=== PATIENT | male | born 1965 | race Caucasian/White ===

== ENCOUNTER 2023-04-24 14:51 | Outpatient (CLI) | payer BC | END 2023-04-24 14:52 | disposition home or self-care (01) | LOC: CSHMRI 14:51 | PROVIDERS: ATTEND Neurological Surgery | DX: M47.22 Other spondylosis with radiculopathy, cervical region (principal); M25.78 Osteophyte, vertebrae | CPT/HCPCS: 72141 ==

== ENCOUNTER 2023-11-06 10:57 | Outpatient (CLI) | payer BC | END 2023-11-06 10:58 | disposition home or self-care (01) | LOC: CSHRAD 10:57 | PROVIDERS: ATTEND Neurological Surgery | DX: M54.12 Radiculopathy, cervical region (principal); M47.812 Spondylosis without myelopathy or radiculopathy, cervical region; Z98.890 Other specified postprocedural states | CPT/HCPCS: 72040 ==